=== PATIENT | male | born 1945 | race Caucasian/White ===

== ENCOUNTER 2017-11-27 22:21 | Observation (INO) | payer OTHER ==
[~2017-11-27] VITALS: Ht 190.5 cm; Wt 99.8 kg
[2017-11-27] MEDS ORDERED: LORazepam 0.5 MG TAB ONE (23:09)
[2017-11-27] MEDS ORDERED: cloNIDine HCL 0.1 MG TAB PO ONE (23:15)
[2017-11-27] MEDS ORDERED: LORazepam 0.5 MG TAB PO ONE (23:15)
[2017-11-28 04:46] LABS: Basophils # (auto) 0.1 uL; Basophils % (auto) 1.3 % (0.0-2.0); Eosinophils # (auto) 0.7 uL; Eosinophils % (auto) 5.8 % (0.0-7.0); Hematocrit 46.1 % (41.0-53.0); Hemoglobin 15.3 g/dL (13.5-17.5); Lymphocytes # (auto) 1.9 uL; Lymphocytes % (auto) 16.1 % (10.0-50.0); Mean Corpuscular Hemoglobin 29.9 pg (28.0-32.0); Mean Corpuscular Hgb Conc. 33.1 g/dL (32.0-36.0); Mean Corpuscular Volume 90.2 fL (80.0-100.0); Monocytes # (auto) 1.4 uL; Neutrophils # (auto) 7.6 uL; Neutrophils % (auto) 64.8 % (37.0-80.0); Nucleated Red Blood Cells % 0.2 %; Platelet Count (auto) 211 10^3/uL (140-450); Red Blood Cells 5.12 10^6/uL (4.5-5.90); Red Cell Distribution Width 14.6 % (11.8-14.3); White Blood Cell 11.7 10^3/uL (4.4-10.8)
[2017-11-28 05:10] LABS: BUN/Creatinine Ratio 38.7; Bilirubin, Total 0.4 mg/dL (0.2-1.0); Calcium 8.1 mg/dL (8.5-10.1); Potassium 3.6 mmol/L (3.5-5.1); Total Protein 7.1 g/dL (6.4-8.2)
[2017-11-28] MEDS ORDERED: OLANZapine 5 MG TAB PO ONE (09:00)
[2017-11-28] MEDS ORDERED: LABETALOL HCL 5 MG/ML ML 20ML VIAL IV ONE (09:00)
[2017-11-28] MEDS ORDERED: LORazepam 0.5 MG TAB PO ONE (09:00)
[2017-11-28] MEDS ORDERED: cloNIDine HCL 0.1 MG TAB PO ONE (09:00)
[2017-11-28 13:42] VITALS: BP 152/85
== END 2017-11-28 12:40 | disposition home or self-care (01) | DRG 305 ==
LOC: EDBD 22:21 → ER 22:24 → OVERFLOW 22:25 → ER 11-28 12:40
PROVIDERS: ADMIT Emergency Medicine; ATTEND Emergency Medicine
DX: I10 Essential (primary) hypertension (principal); F20.0 Paranoid schizophrenia; R45.851 Suicidal ideations; F31.9 Bipolar disorder, unspecified; Z91.14 Patient's other noncompliance with medication regimen; Z88.2 Allergy status to sulfonamides
CPT/HCPCS: 36415; 70450; 80053; 85025; 96374; 99285; G0378

== ENCOUNTER 2017-12-09 17:50 | Emergency (ER) | payer MEDICARE, MEDICAID ==
[~2017-12-09] VITALS: Ht 190.5 cm; Wt 99.8 kg
[2017-12-09 19:34] LABS: Basophils # (auto) 0 uL; Basophils % (auto) 0.4 % (0.0-2.0); Eosinophils # (auto) 0.4 uL; Eosinophils % (auto) 5.6 % (0.0-7.0); Hematocrit 45.1 % (41.0-53.0); Hemoglobin 15.2 g/dL (13.5-17.5); Lymphocytes # (auto) 1.7 uL; Lymphocytes % (auto) 20.7 % (10.0-50.0); Mean Corpuscular Hemoglobin 30.2 pg (28.0-32.0); Mean Corpuscular Hgb Conc. 33.7 g/dL (32.0-36.0); Mean Corpuscular Volume 89.6 fL (80.0-100.0); Monocytes # (auto) 0.7 uL; Monocytes % (auto) 9.1 % (0.0-12.0); Neutrophils # (auto) 5.1 uL; Neutrophils % (auto) 64.2 % (37.0-80.0); Nucleated Red Blood Cells % 0.1 %; Platelet Count (auto) 205 10^3/uL (140-450); Red Blood Cells 5.03 10^6/uL (4.5-5.90); Red Cell Distribution Width 14.1 % (11.8-14.3)
[2017-12-09 19:56] LABS: Alanine Aminotransferase 20 U/L (16-61); Albumin 4.1 g/dL (3.4-5.0); Alkaline Phosphatase 99 U/L (45-117); Anion Gap 8 (5-15); Aspartate Aminotransferase 22 U/L (15-37); BUN/Creatinine Ratio 27.6; Bilirubin, Total 0.4 mg/dL (0.2-1.0); Blood Urea Nitrogen 24 mg/dL (7-18); Calcium 8.2 mg/dL (8.5-10.1); Carbon Dioxide 26 mmol/L (21-32); Chloride 107 mmol/L (98-107); GFR African American 111 mL/min; GFR Non-African American 92 mL/min; Glucose 89 mg/dL (74-106); Magnesium 2.5 mg/dL (1.6-2.6); Potassium 3.6 mmol/L (3.5-5.1); Sodium 141 mmol/L (136-145); Total Protein 7.3 g/dL (6.4-8.2)
[2017-12-09] MEDS ORDERED: LORazepam 0.5 MG TAB PO ONE (21:00)
[2017-12-10] MEDS ORDERED: LORazepam 0.5 MG TAB PO ONE (02:45)
[2017-12-10 05:11] LABS: Alcohol, Urine < 3.0 mg/dL (0-5); Amphetamine Screen, Urine NEGATIVE (NEGATIVE); Barbiturate Scree,Urine NEGATIVE (NEGATIVE); Benzodiazephine Screen, Urine NEGATIVE (NEGATIVE); Cannabinoid Screen, Urine NEGATIVE (NEGATIVE); Cocaine Screen, Urine NEGATIVE (NEGATIVE); Opiate Scree,Urine NEGATIVE (NEGATIVE); Phencyclidine Screen, Urine NEGATIVE (NEGATIVE)
[2017-12-10 06:06] VITALS: BP 135/67
== END 2017-12-10 06:20 | disposition home or self-care (01) ==
LOC: EDBD 17:50 → ER 17:50
DX: F23 Brief psychotic disorder (principal); R07.89 Other chest pain; F20.9 Schizophrenia, unspecified; R45.851 Suicidal ideations; I11.0 Hypertensive heart disease with heart failure; I50.9 Heart failure, unspecified; F41.9 Anxiety disorder, unspecified
CPT/HCPCS: 36415; 71045; 80053; 80307; 83735; 84484; 85025; 93005

== ENCOUNTER 2018-05-28 07:31 | Emergency (ER) | payer MEDICARE, MEDICAID ==
[~2018-05-28] VITALS: Ht 195.6 cm; Wt 117.9 kg
[2018-05-28] MEDS ORDERED: hydrOXYzine HCL 25 MG/ML VL IM ONE (08:00)
[2018-05-28] MEDS ORDERED: cloNIDine HCL 0.1 MG TAB PO ONE (08:00)
[2018-05-28] MEDS ORDERED: methylPREDNISolone SOD SUCC 125 MG/2 ML VL IV ONE (08:00)
[2018-05-28] MEDS ORDERED: cloNIDine HCL 0.1 MG TAB ONE (08:15)
[2018-05-28 08:44] LABS: Urine WBC None Seen /hpf (0 - 3)
[2018-05-28 09:03] LABS: Urine Bacteria NONE SEEN /hpf (None Seen); Urine Blood TRACE /uL (Negative); Urine Specific Gravity 1.009 (1.001-1.035)
[2018-05-28 09:04] LABS: Alcohol, Urine < 3.0 mg/dL (0-5); Amphetamine Screen, Urine NEGATIVE (NEGATIVE); Barbiturate Scree,Urine NEGATIVE (NEGATIVE); Benzodiazephine Screen, Urine NEGATIVE (NEGATIVE); Cannabinoid Screen, Urine NEGATIVE (NEGATIVE); Cocaine Screen, Urine NEGATIVE (NEGATIVE); Opiate Scree,Urine NEGATIVE (NEGATIVE); Phencyclidine Screen, Urine NEGATIVE (NEGATIVE)
[2018-05-28 10:31] LABS: Basophils # (auto) 0.2 uL; Basophils % (auto) 3.4 % (0.0-2.0); Eosinophils # (auto) 0.2 uL; Eosinophils % (auto) 2.8 % (0.0-7.0); Hematocrit 45.9 % (41.0-53.0); Hemoglobin 15.5 g/dL (13.5-17.5); Lymphocytes # (auto) 1.1 uL; Lymphocytes % (auto) 15.7 % (10.0-50.0); Mean Corpuscular Hemoglobin 29.4 pg (28.0-32.0); Mean Corpuscular Hgb Conc. 33.7 g/dL (32.0-36.0); Mean Corpuscular Volume 87.2 fL (80.0-100.0); Monocytes # (auto) 0.5 uL; Monocytes % (auto) 6.7 % (0.0-12.0); Neutrophils # (auto) 4.8 uL; Neutrophils % (auto) 71.4 % (37.0-80.0); Nucleated Red Blood Cells % 0.1 %; Platelet Count (auto) 182 10^3/uL (140-450); Red Blood Cells 5.27 10^6/uL (4.5-5.90); Red Cell Distribution Width 14.4 % (11.8-14.3); White Blood Cell 6.7 10^3/uL (4.4-10.8)
[2018-05-28] MEDS ORDERED: LORazepam 2MG/ML-1ML VIAL IV ONE (10:45)
[2018-05-28 10:53] LABS: Alanine Aminotransferase 21 U/L (16-61); Albumin 3.8 g/dL (3.4-5.0); Alkaline Phosphatase 95 U/L (45-117); Anion Gap 4 (5-15); Aspartate Aminotransferase 17 U/L (15-37); BUN/Creatinine Ratio 23.1; Bilirubin, Total 0.5 mg/dL (0.2-1.0); Blood Alcohol < 3.0 mg/dL (0-5); Blood Urea Nitrogen 15 mg/dL (7-18); Carbon Dioxide 28 mmol/L (21-32); Chloride 109 mmol/L (98-107); GFR African American 155 mL/min; GFR Non-African American 128 mL/min; Glucose 88 mg/dL (74-106); Potassium 3.5 mmol/L (3.5-5.1); Sodium 141 mmol/L (136-145)
[2018-05-28 12:49] VITALS: BP 144/78
== END 2018-05-28 13:24 | disposition home or self-care (01) ==
LOC: ER 07:31 → EDBD 07:31 → ER 13:24
DX: F20.9 Schizophrenia, unspecified (principal); F41.9 Anxiety disorder, unspecified; F32.9 Major depressive disorder, single episode, unspecified; I11.0 Hypertensive heart disease with heart failure; I50.9 Heart failure, unspecified; Z88.2 Allergy status to sulfonamides
CPT/HCPCS: 36415; 70450; 80053; 80307; 80320; 81001; 84484; 85025; 93005; 94761; 96374; 99285; J2060